=== PATIENT | male | born 1985 | race Two or more races ===

== ENCOUNTER 2021-12-11 18:06 | Emergency (ER) | payer SELFPAY ==
--- NOTE | 2021-12-11 18:55 | NUR ---
Pt left w/o being triaged.
== END 2021-12-11 18:56 | disposition left against medical advice (07) ==
LOC: ER 18:13
DX: Z53.21 Procedure and treatment not carried out due to patient leaving prior to being seen by health care provider (principal)

== ENCOUNTER 2022-01-12 01:15 | Emergency (ER) | payer SELFPAY ==
[~2022-01-12] VITALS: Ht 188 cm; Wt 102.1 kg
--- NOTE | 2022-01-12 01:25 | NUR ---
Dr. Wiley at bedside for MSE.
[2022-01-12] MEDS ORDERED: LORAZEPAM 0.5 MG TABLET PO ONE (01:30)
[2022-01-12] MEDS ORDERED: NITROGLYCERIN OINT 1 GM PACKET TP ONE ×2 (01:30→01:46)
[2022-01-12] MEDS ORDERED: ASPIRIN 81 MG TAB.CHEW PO ONE (01:30)
[2022-01-12] MEDS ORDERED: HYDROCODONE/APAP 5-325MG TABLET PO ONE (01:30)
[2022-01-12] MEDS ORDERED: ONDANSETRON ODT 4 MG TAB.RAPDIS SL ONE (01:30)
[2022-01-12] MEDS ORDERED: PENICILLIN G BENZATHINE 2.4 MMU/4 ML DISP.SYRIN IM ONE ×2 (01:30→01:47)
[2022-01-12] MEDS ORDERED: ALPR2TAB7 PO ×2 (01:32→01:45)
[2022-01-12] MEDS ORDERED: LORAZEPAM 0.5 MG TABLET ONE (01:40)
[2022-01-12] MEDS ORDERED: ASPIRIN 81 MG TAB.CHEW ONE (01:45)
[2022-01-12] MEDS ORDERED: HYDROCODONE/APAP 5-325MG TABLET ONE (01:45)
[2022-01-12] MEDS ORDERED: ONDANSETRON ODT 4 MG TAB.RAPDIS ONE (01:46)
--- NOTE | 2022-01-12 02:15 | NUR ---
Xray at bedside.
--- NOTE | 2022-01-12 02:33 | NUR ---
Pt unable to give urine at this time, provided with a specimen cup.
[2022-01-12 02:58] LABS: MEAN CORPUSCULAR HEMOGLOBIN 28.9 uug (23.8-33.4); MEAN CORPUSCULAR VOLUME 87.6 fL (73.0-96.2); PLATELET COUNT (AUTO) 445 K/uL (152-348)
[2022-01-12 03:04] LABS: CARBON DIOXIDE 26 mmol/L (21-32); CHLORIDE 102 mmol/L (98-107); GLUCOSE 112 mg/dL (74-106); POTASSIUM 3.1 mmol/L (3.5-5.1); UREA NITROGEN, BLOOD 8 mg/dL (7-18)
[2022-01-12] MEDS ORDERED: POTASSIUM CHLORIDE 20 MEQ TAB.PRT.SR PO ONE (03:15)
[2022-01-12 03:18] LABS: ALANINE AMINOTRANSFERASE 28 U/L (16-63); ALKALINE PHOSPHATASE 74 U/L (50-136); ASPARTATE AMINOTRANSFERASE 17 U/L (15-37); BILIRUBIN,DIRECT 0.1 mg/dL (0.0-0.2); BILIRUBIN,TOTAL 0.5 mg/dL (0.2-1.0); TOTAL PROTEIN, SERUM 7.8 g/dL (6.4-8.2)
[2022-01-12] MEDS ORDERED: POTASSIUM CHLORIDE 20 MEQ TAB.PRT.SR ONE (03:25)
--- NOTE | 2022-01-12 03:25 | NUR ---
Pt provided urine sample, sent to lab.
[2022-01-12 03:48] LABS: *BILIRUBIN,URIN NEGATIVE (NEGATIVE); *BLOOD, URINE NEGATIVE (NEGATIVE); *CLARITY,URINE CLEAR (CLEAR); *COLOR,URINE YELLOW (YELLOW); *KETONES,URINE NEGATIVE (NEGATIVE); *UROBILINOGEN,URINE 0.2 E.U./dl (NORMAL); LEUKOCYTE ESTERASE ,URINE NEGATIVE (NEGATIVE); NITRITE, URINE NEGATIVE (NEGATIVE); UGLUCOSE NEGATIVE (NEGATIVE)
[2022-01-12 04:15] LABS: *AMPHETAMINE, URINE POSITIVE (NEGATIVE); *CANNABINOID, URINE NEGATIVE (NEGATIVE); *COCCAINE, URINE NEGATIVE (NEGATIVE); *OPIATE, URINE NEGATIVE (NEGATIVE); *PHENCYCLIDINE SCREEN,URINE NEGATIVE (NEGATIVE)
--- NOTE | 2022-01-12 05:13 | NUR ---
Patient discharged to home in stable condition. Written and verbal after care instructions given. Patient verbalizes understanding of instructions. Stressed follow up or return to ER for worsening s/s. Patient out of ER with steady gait, no acute signs of distress, VSS, all belongings taken, IV site discontinued, provided with copies of lab and xray results, instructed not to drive, pt taking uber home.
[2022-01-12 05:15] VITALS: BP 131/84
[2022-01-12] MEDS ORDERED: HYDROCODONE/APAP 10-325 MG TABLET PO ONE (05:15)
[2022-01-12] MEDS ORDERED: HYDROCODONE/APAP 10-325 MG TABLET ONE (05:18)
== END 2022-01-12 05:15 | disposition home or self-care (01) ==
LOC: ER 01:21
DX: R07.9 Chest pain, unspecified (principal); F41.9 Anxiety disorder, unspecified; Z76.0 Encounter for issue of repeat prescription; G44.309 Post-traumatic headache, unspecified, not intractable; F07.81 Postconcussional syndrome; Z20.822 Contact with and (suspected) exposure to COVID-19; K08.89 Other specified disorders of teeth and supporting structures
CPT/HCPCS: 36415; 71045; 80048; 80076; 80307; 81003; 83880; 84484 ×2; 85025; 85379; 85730; 87426; 93005; 96372; 99285; J0561; A4663; Q0162

== ENCOUNTER 2024-06-12 21:05 | Emergency (ER) | payer OTHER ==
[~2024-06-12] VITALS: Ht 185.4 cm; Wt 106.6 kg
[~2024-06-12 21:05] MED LIST: ALPR2TAB7 PO
[2024-06-12] MEDS ORDERED: AMOXICILLIN-CLAVUL 875-125MG TABLET ONE (21:51)
[2024-06-12] MEDS ORDERED: NAPROXEN 500 MG TABLET ONE (21:51)
[2024-06-12] MEDS ORDERED: AMOX-430 PO (21:56)
[2024-06-12] MEDS ORDERED: MELO-107 PO (21:56)
[2024-06-12] MEDS ORDERED: NAPR-1009 PO (21:56)
[2024-06-12] MEDS ORDERED: [UNRECOGNIZED DRUG - CODE] MM (21:59)
[2024-06-12] MEDS ORDERED: NAPROXEN 500 MG TABLET PO ONE (22:00)
[2024-06-12] MEDS ORDERED: HYDROCODONE/APAP 5-325MG TABLET ONE (22:05)
[2024-06-12] MEDS: HYDROCODONE/APAP 5-325MG TABLET PO ONE (22:06)
[2024-06-12] MEDS: AMOXICILLIN-CLAVUL 875-125MG TABLET PO ONE (22:06)
[2024-06-12] MEDS: MELOXICAM 7.5 MG TABLET PO STA (22:30)
[2024-06-12 22:35] VITALS: BP 134/86; TEMP 98; O2SAT 100
== END 2024-06-12 22:35 | disposition home or self-care (01) ==
LOC: ER 21:10
DX: K04.7 Periapical abscess without sinus (principal); K02.9 Dental caries, unspecified; Z79.899 Other long term (current) drug therapy
CPT/HCPCS: A4606; A4663

== ENCOUNTER 2024-09-04 02:16 | Emergency (ER) | payer MEDICAID, OTHER ==
[~2024-09-04] VITALS: Ht 185.4 cm; Wt 106.6 kg
[~2024-09-04 02:16] MED LIST changes: +AMOX-430 PO; +MELO-107 PO; +[UNRECOGNIZED DRUG - CODE] MM
[2024-09-04] MEDS ORDERED: PENICILLIN G BENZATHINE 1.2 MMU/2 ML DISP.SYRIN IM ONE (02:54)
[2024-09-04] MEDS: PENICILLIN G BENZATHINE 2.4 MMU/4 ML DISP.SYRIN IM ONE (03:02)
[2024-09-04] MEDS ORDERED: ACETAMINOPHEN 500 MG TABLET ONE (03:12)
[2024-09-04] MEDS ORDERED: ONDANSETRON ODT 4 MG TAB.RAPDIS ONE (03:13)
[2024-09-04] MEDS: ONDANSETRON ODT 4 MG TAB.RAPDIS SL ONE (03:14)
[2024-09-04] MEDS: ACETAMINOPHEN 500 MG TABLET PO ONE (03:15)
[2024-09-04] MEDS ORDERED: PRED20TA PO (03:36)
[2024-09-04] MEDS ORDERED: TRAM50TA2 PO (03:36)
[2024-09-04] MEDS ORDERED: ONDA4TAB11 PO (03:36)
[2024-09-04] MEDS ORDERED: ALBU8.5H8 IH (03:36)
[2024-09-04 03:50] VITALS: BP 137/71; TEMP 209.1; O2SAT 98
== END 2024-09-04 03:50 | disposition home or self-care (01) ==
LOC: ER 02:22
DX: K02.9 Dental caries, unspecified (principal); R50.9 Fever, unspecified; M79.10 Myalgia, unspecified site; F41.9 Anxiety disorder, unspecified; Z79.1 Long term (current) use of non-steroidal anti-inflammatories (NSAID); Z20.822 Contact with and (suspected) exposure to COVID-19
CPT/HCPCS: 99284; 71045; 87426; 96372; J0561; A4606; A4663; A9150; Q0162

== ENCOUNTER 2024-10-04 04:15 | Emergency (ER) | payer MEDICAID ==
[~2024-10-04] VITALS: Ht 185.4 cm; Wt 106.6 kg
[~2024-10-04 04:15] MED LIST changes: +ALBU8.5H8 IH; +ONDA4TAB11 PO; +PRED20TA PO; +TRAM50TA2 PO
[2024-10-04] MEDS ORDERED: ONDANSETRON HCL 4 MG TABLET ONE (04:43)
[2024-10-04] MEDS ORDERED: CHLO473M3 PO (04:50)
[2024-10-04] MEDS ORDERED: SULF1TAB48 PO (04:50)
[2024-10-04] MEDS ORDERED: TRAM50TA2 PO (04:50)
[2024-10-04] MEDS ORDERED: ONDA4TAB11 PO (04:50)
[2024-10-04] MEDS ORDERED: NYST15PO4 TP (04:50)
[2024-10-04] MEDS: ONDANSETRON ODT 4 MG TAB.RAPDIS SL ONE (04:58)
[2024-10-04] MEDS: SULFAMETH/TRIMETH 800/160 MG TABLET PO ONE (04:59)
[2024-10-04] MEDS: CEFTRIAXONE 1 G VIAL IM ONE (04:59)
[2024-10-04] MEDS: NYSTATIN POWDER 15 GM BOTTLE TOP ONE (05:01)
[2024-10-04] MEDS: ACETAMINOPHEN 500 MG TABLET PO ONE (05:01)
[2024-10-04] MEDS ORDERED: TRAMADOL HCL 50 MG TABLET ONE (05:02)
[2024-10-04] MEDS: TRAMADOL HCL 50 MG TABLET PO ONE (05:10)
[2024-10-04 05:25] VITALS: BP 130/76; TEMP 98.2; O2SAT 98
== END 2024-10-04 05:26 | disposition home or self-care (01) ==
LOC: ER 04:26
DX: K08.89 Other specified disorders of teeth and supporting structures (principal); L30.4 Erythema intertrigo; J06.9 Acute upper respiratory infection, unspecified; L98.499 Non-pressure chronic ulcer of skin of other sites with unspecified severity; F17.200 Nicotine dependence, unspecified, uncomplicated; Z79.1 Long term (current) use of non-steroidal anti-inflammatories (NSAID); Z79.52 Long term (current) use of systemic steroids
CPT/HCPCS: 99284; 96372; J0696; A4606; A4663; A9150; Q0162

== ENCOUNTER 2024-10-24 03:50 | Emergency (ER) | payer MEDICAID ==
[~2024-10-24] VITALS: Ht 185.4 cm; Wt 106.6 kg
[~2024-10-24 03:50] MED LIST changes: +CHLO473M3 PO; +NYST15PO4 TP; +SULF1TAB48 PO
[2024-10-24 04:04] VITALS: O2SAT 99
[2024-10-24] MEDS ORDERED: CHLO473M3 PO (05:08)
[2024-10-24] MEDS ORDERED: ONDA4TAB11 PO (05:08)
[2024-10-24] MEDS ORDERED: TRAM50TA2 PO (05:08)
[2024-10-24] MEDS ORDERED: AMOX-430 PO (05:09)
[2024-10-24] MEDS ORDERED: ONDANSETRON ODT 4 MG TAB.RAPDIS ONE (05:17)
[2024-10-24] MEDS ORDERED: HYDROCODONE/APAP 10-325 MG TABLET ONE (05:18)
[2024-10-24] MEDS ORDERED: AMOXICILLIN-CLAVUL 875-125MG TABLET ONE (05:18)
[2024-10-24] MEDS: ONDANSETRON ODT 4 MG TAB.RAPDIS SL ONE (05:20)
[2024-10-24] MEDS: HYDROCODONE/APAP 10-325 MG TABLET PO ONE (05:20)
[2024-10-24] MEDS: AMOXICILLIN-CLAVUL 875-125MG TABLET PO ONE (05:20)
[2024-10-24] MEDS ORDERED: METH4TAB3 PO (05:54)
== END 2024-10-24 05:55 | disposition home or self-care (01) ==
LOC: ER 03:52
DX: K04.7 Periapical abscess without sinus (principal); R03.0 Elevated blood-pressure reading, without diagnosis of hypertension; F17.200 Nicotine dependence, unspecified, uncomplicated; Z79.1 Long term (current) use of non-steroidal anti-inflammatories (NSAID); Z79.52 Long term (current) use of systemic steroids
CPT/HCPCS: A4606; A4663; Q0162

== ENCOUNTER 2024-12-20 04:44 | Emergency (ER) | payer MEDICAID ==
[~2024-12-20] VITALS: Ht 185.4 cm; Wt 106.6 kg
[~2024-12-20 04:44] MED LIST changes: +METH4TAB3 PO
[2024-12-20] MEDS ORDERED: AMOX500T2 PO (05:37)
[2024-12-20] MEDS ORDERED: TRAM50TA2 PO (05:37)
[2024-12-20] MEDS ORDERED: MELO-107 PO (05:37)
[2024-12-20] MEDS ORDERED: NYST15PO4 TP (05:37)
[2024-12-20 06:27] VITALS: BP 172/124; TEMP 97.8; O2SAT 98
== END 2024-12-20 06:27 | disposition home or self-care (01) ==
LOC: ER 05:00
DX: K02.9 Dental caries, unspecified (principal); B35.6 Tinea cruris; F17.200 Nicotine dependence, unspecified, uncomplicated; R00.0 Tachycardia, unspecified; Z79.1 Long term (current) use of non-steroidal anti-inflammatories (NSAID); Z79.52 Long term (current) use of systemic steroids; Z79.899 Other long term (current) drug therapy; Z87.19 Personal history of other diseases of the digestive system; Z87.39 Personal history of other diseases of the musculoskeletal system and connective tissue
CPT/HCPCS: A4606; A4663